=== PATIENT | female | born 1995 | race African-American/Black ===

== ENCOUNTER 2017-01-17 19:18 | Inpatient (IN) | payer OTHER ==
[~2017-01-17] VITALS: Ht 180.3 cm; Wt 135.2 kg
[~2017-01-17 19:18] MED LIST: GLUXL5 PO; INSU100S22 SC; METF10002 PO
[2017-01-17 19:22] VITALS: BP 148/90
--- NOTE | 2017-01-17 19:50 | NUR ---
PT TAKEN TO BED 6
--- NOTE | 2017-01-17 20:09 | NUR ---
Dr. Calle evaluating patient at bedside.
[2017-01-17 20:47] LABS: BASOPHILS # (AUTO) 0.1 K/uL (0.00-0.22); EOSINOPHILS # (AUTO) 0.3 K/uL (0-0.4); EOSINOPHILS % (AUTO) 2.7 % (0.0-4.0); HEMATOCRIT 41.5 % (36-48); HEMOGLOBIN 13.9 g/dL (12.0-16.0); LYMPHOCYTES # (AUTO) 2.5 K/uL (2.5-16.5); LYMPHOCYTES % (AUTO) 22.1 % (20.5-51.1); MEAN CORPUSCULAR HEMOGLOBIN 30 pg (27-31); MEAN CORPUSCULAR HGB CONC 34 g/dL (33-37); MEAN CORPUSCULAR VOLUME 88 fL (80-94); MONOCYTES # (AUTO) 0.5 K/uL (0.8-1.0); MONOCYTES % (AUTO) 4.6 % (1.7-9.3); NEUTROPHILS % (AUTO) 69.6 % (42.2-75.2); PLATELET COUNT (AUTO) 313 K/uL (140-450); RED CELL DISTRIBUTION WIDTH 12.2 % (11.6-13.7); WHITE BLOOD COUNT (AUTO) 11.4 K/uL (4.8-10.8)
[2017-01-17 20:52] LABS: ANION GAP 14.1 (8-16); CARBON DIOXIDE 27.3 mmol/L (21-32); CREATININE 0.7 mg/dL (0.6-1.3); POTASSIUM 3.4 mmol/L (3.5-5.1)
[2017-01-17 20:58] LABS: ALBUMIN 3.6 g/dL (3.4-5.0); TOTAL BILIRUBIN 0.2 mg/dL (0.0-1.0); TOTAL PROTEIN, SERUM 7.6 g/dL (6.4-8.2)
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
[2017-01-17 21:01] LABS: APPEARANCE,URINE CLEAR (CLEAR); BILIRUBIN,URINE NEGATIVE (NEGATIVE); BLOOD, URINE TRACE-I (NEGATIVE); COLOR,URINE YELLOW (YELLOW); LEUKOCYTE ESTERASE ,URINE NEGATIVE (NEGATIVE); NITRITE, URINE NEGATIVE (NEGATIVE); PROTEIN,URINE NEGATIVE (NEGATIVE); UGLUCOSE NEGATIVE (NEGATIVE); UROBILINOGEN,URINE 0.2 EU/dL (0.2 - 1)
--- NOTE | 2017-01-17 22:00 | NUR ---
Patient appears to be resting comfortably in bed. Vital Signs within normal limits. Respirations even and unlabored.
[2017-01-17 22:50] LABS: BACTERIA,URINE OCCASSIONAL /HPF (None Seen); RBC,URINE 0-5 (RARE) /HPF (0-5); WBC,URINE 0-5 (RARE) /HPF (0-5)
[2017-01-17 22:51] LABS: SQUAMOUS EPITHELIAL CELL,UR 4-10 (MOD) /LPF (0-3 (FEW))
[2017-01-17 23:00] VITALS: BP 133/81
--- NOTE | 2017-01-17 23:00 | NUR ---
Patient will be admitted to care of [facility]. Admited to ICU/TELE. Will go to room BED 3. Belongings list completed. Report to DUSTIN.
--- NOTE | 2017-01-17 23:10 | NUR ---
PATIENT TRANSFERRED FROM er BY GLENIS RN.THIS IS A TELEMETRY STATUS PATIENT. PATIENT ALERT. NOS SIGNS OF DISTRESS, PATIENT FOLLOWS COMMANDS. LUNGS SOUNDS CLEAR BILATERALLY. SI S2 NOTED. PATIENT HAS ABDOMINAL PAIN, PATIENT IS CONTINENT AND VOIDING. SKIN INTACT, PATIENT IS AMBULATORY. PATIENT HAS 7/10 PAIN, THE NURSE WAS NOTIFIED, PATIENT RECEIVED PAIN MEDICATION PER DR ORDERS. . IV IN THE PATIENTS LEFT WRIST. WILL CONTINUE TO MONITOR PATIENT, RESTING AT THIS TIME.
[2017-01-18] VITALS: BP 119/61
[2017-01-18] MEDS ORDERED: ONDANSETRON 4 MG/2 ML VIAL IVP PRN ×3 (00:20→22:50)
[2017-01-18] MEDS ORDERED: ACETAMINOPHEN 325 MG TAB PO PRN ×2 (00:20→10:20)
[2017-01-18] MEDS ORDERED: DOCUSATE SODIUM 100 MG GELCAP PO PRN (00:20)
[2017-01-18] MEDS ORDERED: POTASSIUM CHLORIDE 10 MEQ TABER PO ONE (00:25)
[2017-01-18] MEDS: MORPHINE SULFATE 2 MG/ML SYR IVP PRN ×2 (00:39→08:36)
[2017-01-18 00:47] LABS: PROTHROMBIN TIME 10.4 secs (10.8-13.4)
[2017-01-18 00:51] LABS: AMPHETAMINE, URINE NEG. ng/ml (NEG <=1000); BARBITURATE, URINE NEG. ng/ml (NEG <=200); BENZODIAZEPINE, URINE NEG. ng/mL (NEG <=200); CANNABINOID, URINE NEG. ng/mL (NEG <=50); COCAINE, URINE NEG. ng/mL (NEG <=300); OPIATE, URINE NEG. ng/mL (NEG <=2000); PHENCYCLIDINE SCREEN,URINE NEG. ng/mL (NEG <=25)
[2017-01-18 00:56] LABS: CHOL/HDL RATIO 6.5 (1-4.5); MAGNESIUM 1.8 mg/dL (1.8-2.4); PHOSPHORUS 4.4 mg/dL (2.5-4.9); THYROID STIMULATING HORMONE 2.14 uIU/mL (0.34-3.76)
--- NOTE | 2017-01-18 01:00 | NUR ---
01/18/17 [place] PATIENT HAD A CRITICAL LACTIC ACID AT 2.3. THE DR WAS CALLED BUT DID NOT ANSWER. THE DR CALLED BACK AND SAID THEY WOULD DO A REPEAT LACTIC ACID LATER IN THE MORNING.
[2017-01-18 04:00] VITALS: BP 124/82
[2017-01-18 05:23] LABS: BASOPHILS # (AUTO) 0.1 K/uL (0.00-0.22); BASOPHILS % (AUTO) 0.9 % (0.0-2.0); EOSINOPHILS # (AUTO) 0.3 K/uL (0-0.4); EOSINOPHILS % (AUTO) 2.6 % (0.0-4.0); HEMATOCRIT 39.9 % (36-48); HEMOGLOBIN 13.2 g/dL (12.0-16.0); LYMPHOCYTES # (AUTO) 2.9 K/uL (2.5-16.5); LYMPHOCYTES % (AUTO) 28.1 % (20.5-51.1); MEAN CORPUSCULAR HEMOGLOBIN 29 pg (27-31); MEAN CORPUSCULAR HGB CONC 33 g/dL (33-37); MEAN CORPUSCULAR VOLUME 89 fL (80-94); MONOCYTES # (AUTO) 0.6 K/uL (0.8-1.0); MONOCYTES % (AUTO) 5.9 % (1.7-9.3); NEUTROPHILS # (AUTO) 6.3 K/uL (1.8-7.7); NEUTROPHILS % (AUTO) 62.5 % (42.2-75.2); PLATELET COUNT (AUTO) 319 K/uL (140-450); RED CELL DISTRIBUTION WIDTH 12.5 % (11.6-13.7); WHITE BLOOD COUNT (AUTO) 10.2 K/uL (4.8-10.8)
[2017-01-18 06:48] LABS: ANION GAP 15.6 (8-16); CALCIUM 8.7 mg/dL (8.5-10.1); CREATININE 0.6 mg/dL (0.6-1.3); POTASSIUM 3.6 mmol/L (3.5-5.1)
--- NOTE | 2017-01-18 07:00 | NUR ---
RECEIVED REPORT FROM ICU NURSE AT BEDSIDE. PT IS ALERT AWAKE AND ORIENTED. HAS IV ON L WRIST 20 G SL. WILL CALL FOR SCDS. CALL LIGHT WITHIN REACH. WILL CONTINUE TO MONITOR.
[2017-01-18 08:00] VITALS: BP 117/76
--- NOTE | 2017-01-18 08:00 | NUR ---
VS WNL. PT C/O ABD PAIN, WILL MEDICATE.
[2017-01-18] MEDS ORDERED: PNEUMOCOCCAL VACCINE 23 MCG/0.5 ML VIAL IMVAC SCH (09:00)
--- NOTE | 2017-01-18 09:11 | NUR ---
PATIENT HAS BEEN SCREENED AND CATEGORIZED HIGH NUTRITION RISK. PATIENT WILL BE SEEN WITHIN 1-2 DAYS OF ADMISSION. 01/18/17-01/19/[address]
--- NOTE | 2017-01-18 10:00 | NUR ---
AT BEDSIDE EXAMINING PT. CALL LIGHT WITHIN REACH. WILL CONTINUE TO MONITOR.
[2017-01-18] MEDS ORDERED: MORPHINE SULFATE 2 MG/ML SYR IVP PRN (10:20)
[2017-01-18] MEDS ORDERED: HYDROcodone/APAP 5/325 MG 1 TAB TAB PO PRN (10:20)
[2017-01-18] MEDS ORDERED: ALBUTEROL SULFATE/IPRATROPIU 3 ML SOL IH PRN (10:25)
[2017-01-18] MEDS: NACL 0.9% 1,000 ML IV SCH ×3 (10:35→23:07)
[2017-01-18] MEDS ORDERED: DEXTROSE 50% 50 ML SYR IVP PRN (10:45)
[2017-01-18 12:00] VITALS: BP 132/83
--- NOTE | 2017-01-18 12:00 | NUR ---
X-RAY AND U/S TECHS AT BEDSIDE PERFORMED TESTS. PT TOLERATED WELL. CALL LIGHT WITHIN REACH. WILL CONTINUE TO MONITOR.
[2017-01-18] MEDS: BLOOD GLUCOSE MONITORING 1 DEV DEV FS SCH ×3 (12:22→20:46)
--- NOTE | 2017-01-18 13:00 | NUR ---
PT IS RESTING IN BED. NO COMPLAINTS AT THIS TIME. CALL LIGHT WITHIN REACH. WILL CONTINUE TO MONITOR.
--- NOTE | 2017-01-18 15:00 | NUR ---
PT IS WONDERING WHEN DR IS COMING. REASSURED PT DOCTOR WILL COME WITHIN 24 HOURS. CALL LIGHT WITHIN REACH. WILL CONTINUE TO MONITOR.
[2017-01-18 16:00] VITALS: BP 126/77
--- NOTE | 2017-01-18 17:30 | NUR ---
PT'S FATHER VISITED. PT IN STABLE CONDITION. CALL LIGHT WITHIN REACH. WILL CONTINUE TO MONITOR.
--- NOTE | 2017-01-18 19:15 | NUR ---
ENDORSED CARE OF PT TO CAR CHECKER NURSE AT BEDSIDE. PT IN STABLE CONDITION.
--- NOTE | 2017-01-18 19:30 | NUR ---
RECEIVED REPORT FROM AM NURSE. AOX4, RESTING IN BED, ABLE TO VERBALIZE NEEDS. ERP CONSULTANT IN PLACE. PT DENIES PAIN AT THIS TIME. NO CP, SOB OR S/S OF ACUTE DISTRESS. IV ACCESS ASYMPTOMATIC, PATENT AND INTACT. IVF INFUSING WELL. DISCUSSED AND REVIEWED PLAN OF CARE WITH PT. PT INSTRUCTED TO REMAIN NPO. PT VERBALIZES UNDERSTANDING. SAFETY MEASURES ENSURED. CALL LIGHT WITHIN REACH. WILL CONTINUE TO MONITOR.
[2017-01-18 20:00] VITALS: BP 126/78
--- NOTE | 2017-01-18 20:44 | NUR ---
PT REFUSED [facility] DESPITE EDUCATION. PT REQUESTING TO SHOWER WHEN HER SISTER GETS TO THE HOSPITAL. REQUESTED PERMISSION FROM DR AVENDANO FOR PT TO SHOWMD RODRIGO STATED IT WAS OK. BLOOD SUGAR 92, NO INSULIN COVERAGE NEEDED. ALL NEEDS MET. SAFETY MEASURES ENSURED. CALL LIGHT WITHIN REACH.
[2017-01-18] MEDS: DOCUSATE SODIUM 100 MG GELCAP PO SCH (20:46)
--- NOTE | 2017-01-18 21:00 | NUR ---
PT EVALUATED BY DR CRUZ. DISCUSSED PT CONDITION AND PLAN OF CARE. SURGERY TO BE DONE TONIGHT.
--- NOTE | 2017-01-18 21:15 | NUR ---
NOTIFIED BY CHARGE NURSE THAT SHE HAD OBTAINED PT'S SIGNED CONSENT FOR SURGERY.
--- NOTE | 2017-01-18 21:34 | NUR ---
NOTIFIED BY CHARGE NURSE THAT PT WAS TAKEN OUT OF THE UNIT FOR SURGERY.
[2017-01-18] MEDS ORDERED: BUPIVACAINE-MPF 0.5% 30 ML VIAL INJ ONE (22:05)
[2017-01-18] MEDS ORDERED: PROPOFOL 200 MG/20 ML VIAL IV ONE (22:06)
[2017-01-18] MEDS ORDERED: GLYCOPYRROLATE 0.2 MG/ML VIAL ONE (22:06)
[2017-01-18] MEDS ORDERED: KETOROLAC 30 MG/ML VIAL ONE (22:06)
[2017-01-18] MEDS ORDERED: PHENYLEPHRINE 10 MG/ML VIAL ONE (22:06)
[2017-01-18] MEDS ORDERED: LIDOCAINE 2% 100 MG/5 ML SYR IVP ONE (22:06)
[2017-01-18] MEDS ORDERED: ONDANSETRON 4 MG/2 ML VIAL ONE (22:06)
[2017-01-18] MEDS ORDERED: DESFLURANE 240 ML BTL INH ONE (22:06)
[2017-01-18] MEDS ORDERED: SUCCINYLCHOLINE CHLORIDE 200 MG/10 ML VIAL IVP ONE ×2 (22:06→22:24)
[2017-01-18] MEDS ORDERED: ROCURONIUM 50 MG/5 ML VIAL IV ONE (22:06)
[2017-01-18] MEDS ORDERED: DEXAMETHASONE 4 MG/ML VIAL ONE (22:06)
[2017-01-18] MEDS ORDERED: MORPHINE SULFATE 4 MG/ML SYR IM/IVP PRN (22:15)
[2017-01-18] MEDS ORDERED: ACETAMINOPHEN/CODEINE 300/30MG 1 TAB PO PRN (22:15)
[2017-01-18] MEDS ORDERED: IBUPROFEN 800 MG TAB PO PRN (22:15)
[2017-01-18] MEDS ORDERED: CLINDAMYCIN 900 MG/6 ML VIAL IV ONE (22:17)
[2017-01-18] MEDS ORDERED: fentaNYL 0.05 MG/ML VIAL ONE (22:19)
[2017-01-18] MEDS ORDERED: MIDAZOLAM 2 MG/2 ML VIAL ONE (22:19)
[2017-01-18] MEDS ORDERED: HYDROmorphone 1 MG/ML AMP IVP PRN (22:50)
[2017-01-18] MEDS ORDERED: BLOOD GLUCOSE MONITORING 1 DEV DEV FS SCH (23:00)
[2017-01-18] MEDS: HYDROmorphone PFS 2 MG/ML SYR ONE ×2 (23:47→23:57)
[2017-01-19] MEDS ORDERED: ALBUTEROL 0.083% 2.5 MG/3 ML NEBU INH ONE (00:24)
[2017-01-19] MEDS ORDERED: ALBUTEROL 0.083% 2.5 MG/3 ML NEBU INH SCH (00:30)
[2017-01-19 00:50] VITALS: BP 137/89
--- NOTE | 2017-01-19 00:50 | NUR ---
PT BACK FROM SURGERY. PT AOX4, ABLE TO VERBALIZE NEEDS, RESTING IN BED. VS NOTED. PT ALREADY MEDICATED FOR PAIN IN RECOVERY. NO S/S OF ACUTE DISTRESS. FERMENTATION SCIENTIST IN PLACE. DRESSING ON LOWER ABDOMEN CLEAN DRY AND INTACT, NO SIGNS OF BLEEDING. IV ACCESS ASYMPTOMATIC, PATENT AND INTACT. IVF WELL. SAFETY MEASURES ENSURED. CALL LIGHT WITHIN REACH. WILL CONTINUE TO MONITOR. Addendum: 01/19/17 at 0318 by Rafita Gonzalez RN BLOOD SUGAR 164, TAKEN BY RECOVERY NURSE. WILL HOLD INSULIN COVERAGE DUE TO PT NPO AT THIS TIME AND POST-OP.
[2017-01-19] MEDS: NACL 0.9% 1,000 ML IV SCH (01:25)
[2017-01-19 04:00] VITALS: BP 112/75
--- NOTE | 2017-01-19 04:00 | NUR ---
VS NOTED. PT C/O PAIN. SEE PAIN ASSESSMENT. WILL MEDICATE ORDERED. SAFETY MEASURES ENSURED. CALL LIGHT WITHIN REACH.
[2017-01-19] MEDS: MORPHINE SULFATE 4 MG/ML SYR IM/IVP PRN ×2 (04:45→11:34)
[2017-01-19] MEDS: BLOOD GLUCOSE MONITORING 1 DEV DEV FS SCH ×2 (07:03→12:01)
[2017-01-19] MEDS: INSULIN LISPRO SLIDING SCALE 100 UNITS/ML VIAL SUBQ PRN ×2 (07:04→12:03)
--- NOTE | 2017-01-19 07:30 | NUR ---
CONDITION STABLE. ENDORSED PLAN OF CARE TO AM NURSE.
--- NOTE | 2017-01-19 07:31 | NUR ---
PT AWAKE AND ALERT, NO SIGNS OF ACUTE DISTRESS. BOWEL SOUNDS ACTIVE IN ALL 4 QUADRANTS, NO ABDOMINAL DISTENTION. BOWEL AND BLADDER CONTINENCE. SKIN INTACT. AMBULATORY WITH BRP, IV PATENT AND ASYMPTOMATIC. BED IN LOW POSITION WITH BILATERAL HALF SIDE RAILS UP, CALL LIGHT WITHIN REACH. RE-ORIENTED PATIENT TO UNIT AND HOSPITAL, PT VERBALIZED UNDERSTANDING.
[2017-01-19 08:00] VITALS: BP 127/72
[2017-01-19] MEDS ORDERED: INSULIN DETEMIR 100 UNITS/ML 10 ML VIAL SUBQ SCH (09:00)
[2017-01-19] MEDS: metFORMIN 500 MG TAB PO SCH ×2 (09:00→11:55)
[2017-01-19] MEDS ORDERED: glipiZIDE 5 MG TAB PO SCH ×2 (09:00→09:25)
[2017-01-19] MEDS: DOCUSATE SODIUM 100 MG GELCAP PO SCH (09:25)
--- NOTE | 2017-01-19 10:57 | NUR ---
CM NOTE INITAL REVIEW FAXED TO [facility] [phone] DAVID [phone] DECEMBER [phone]
[2017-01-19 12:00] VITALS: BP 118/74
[2017-01-19] MEDS ORDERED: HYDR-4446 PO (12:47)
[2017-01-19] MEDS ORDERED: IBUP-2213 PO (12:47)
[2017-01-19] MEDS ORDERED: DOCU-67 PO (12:47)
--- NOTE | 2017-01-19 13:00 | NUR ---
RECEIVED DISCHARGE ORDERS FROM EDY BANERJEE, NOTED, WILL CARRY OUT.
--- NOTE | 2017-01-19 13:10 | NUR ---
01/19/17 RD INITIAL ASSESSMENT COMPLETED PLEASE REFER TO NUTRITION ASSESSMENT UNDER CARE ACTIVITY FOR ESTIMATED NUTRITIONAL NEEDS. 1. CONTINUE 60 G CONSISTENT CARBOHYDRATE DIET 2. RD TO FOLLOW-UP 2-3 DAYS; HIGH RISK IRENA HARDIN RD
--- NOTE | 2017-01-19 15:20 | NUR ---
PT AWAKE AND ALERT, NO SIGNS OF ACUTE DISTRESS. D/C'D IV AND TOOK OFF TELE MONITOR. CUT OFF WRIST BANDS. EDUCATED PT ON SIGNS AND SYMPTOMS OF INFECTION, WORSENING CONDITION AND DISCHARGE INSTRUCTIONS INCLUDING CARE OF SURGICAL INCISION. PT VERBALIZED UNDERSTANDING. PATIENT LEFT UNIT VIA WHEELCHAIR AND TAKEN HOME BY FAMILY VIA PRIVATE AUTO.
[2017-01-19] MEDS ORDERED: ATORVASTATIN 20 MG TAB PO SCH (21:00)
== END 2017-01-19 15:20 | disposition home or self-care (01) | DRG 513 ==
LOC: MED 19:22 → MIC 22:59 → MTU 01-18 07:00
PROVIDERS: ADMIT Family Medicine; ATTEND Family Medicine
PROC: 0UB00ZZ Excision of Right Ovary, Open Approach (ICD-10-PCS; principal; 2017-01-18 21:45)
DX: D27.0 Benign neoplasm of right ovary (principal); E43 Unspecified severe protein-calorie malnutrition; E11.9 Type 2 diabetes mellitus without complications; E78.5 Hyperlipidemia, unspecified; J45.909 Unspecified asthma, uncomplicated; E66.01 Morbid (severe) obesity due to excess calories; Z88.0 Allergy status to penicillin; Z88.2 Allergy status to sulfonamides; Z68.41 Body mass index [BMI] 40.0-44.9, adult; Z82.5 Family history of asthma and other chronic lower respiratory diseases; Z82.3 Family history of stroke; Z82.49 Family history of ischemic heart disease and other diseases of the circulatory system
CPT/HCPCS: 36415; 71010; 76830; 80048; 80053; 80305; 81001; 81025; 82150; 82948; 83036; 83605; 83690; 83735; 83880; 84100; 84443; 85025; 85610; 85730; 87081; 88307; 93005; 93925; 93970; 94640; 99285; J0330; J1100; J1170; J1815; J1885; J2001; J2250; J2270; J2370; J2405; J2704; J3010; J3490; J7030; J7613; J7620; Q0092

== ENCOUNTER 2017-05-31 16:14 | Emergency (ER) | payer MEDICAID, OTHER ==
[~2017-05-31] VITALS: Ht 180.3 cm; Wt 108.2 kg
[~2017-05-31 16:14] MED LIST changes: +ACET-8386 PO; +DOCU-299 PO; +IBUP-2213 PO
[2017-05-31 17:11] VITALS: BP 142/81
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
--- NOTE | 2017-05-31 19:19 | NUR ---
GAVE REPORT TO JANEE JOHN.
[2017-05-31 19:50] VITALS: BP 153/84
--- NOTE | 2017-05-31 19:50 | NUR ---
Patient discharged with v/s stable. Written and verbal after care instructions given and explained. Patient alert, oriented and verbalized understanding of instructions. Ambulatory with steady gait. All questions addressed prior to discharge. ID band removed. Patient advised to follow up with PMD. Rx of Medrol dose pack given. Patient educated on indication of medication including possible reaction and side effects. Opportunity to ask questions provided and answered.
== END 2017-05-31 19:50 | disposition home or self-care (01) ==
LOC: MED 16:14
DX: M54.40 Lumbago with sciatica, unspecified side (principal); J45.909 Unspecified asthma, uncomplicated; E11.9 Type 2 diabetes mellitus without complications; Z88.0 Allergy status to penicillin; Z88.2 Allergy status to sulfonamides
CPT/HCPCS: 81002; 81025; 99283

== ENCOUNTER 2018-07-14 11:43 | Emergency (ER) | payer OTHER ==
[~2018-07-14] VITALS: Ht 177.8 cm; Wt 111.1 kg
[~2018-07-14 11:43] MED LIST changes: -METF10002 PO; +[UNRECOGNIZED DRUG - CODE] PO
[2018-07-14 11:48] VITALS: BP 99/56
[2018-07-14 13:05] LABS: BASOPHILS # (AUTO) 0.1 K/uL (0.00-0.22); BASOPHILS % (AUTO) 0.5 % (0.0-2.0); EOSINOPHILS # (AUTO) 0.1 K/uL (0-0.4); EOSINOPHILS % (AUTO) 0.9 % (0.0-4.0); HEMATOCRIT 42.6 % (36-48); HEMOGLOBIN 13.9 g/dL (12.0-16.0); LYMPHOCYTES # (AUTO) 1.8 K/uL (2.5-16.5); MEAN CORPUSCULAR HEMOGLOBIN 29 pg (27-31); MEAN CORPUSCULAR HGB CONC 33 g/dL (33-37); MEAN CORPUSCULAR VOLUME 89.1 fL (80-94); MONOCYTES # (AUTO) 0.7 K/uL (0.8-1.0); MONOCYTES % (AUTO) 5.3 % (1.7-9.3); NEUTROPHILS # (AUTO) 10.1 K/uL (1.8-7.7); NEUTROPHILS % (AUTO) 79.3 % (42.2-75.2); PLATELET COUNT (AUTO) 291 K/uL (140-450); RED BLOOD CELL COUNT(AUTO) 4.78 MIL/uL (4.20-5.40); RED CELL DISTRIBUTION WIDTH 13.6 % (11.6-13.7); WHITE BLOOD COUNT (AUTO) 12.7 K/uL (4.8-10.8)
[2018-07-14] MEDS: NACL 0.9% 1,000 ML IV SCH (13:05)
[2018-07-14 13:12] LABS: BILIRUBIN,URINE NEGATIVE (NEGATIVE); BLOOD, URINE NEGATIVE (NEGATIVE); COLOR,URINE YELLOW (YELLOW); LEUKOCYTE ESTERASE ,URINE TRACE (NEGATIVE); NITRITE, URINE NEGATIVE (NEGATIVE); PH,URINE 6.5 (5.0-9.0); UGLUCOSE NEGATIVE (NEGATIVE)
[2018-07-14] MEDS: ONDANSETRON 4 MG/2 ML VIAL IVP ONE (13:12)
[2018-07-14 13:14] LABS: APPEARANCE,URINE SLIGHTLY CLOUDY (CLEAR)
[2018-07-14 13:18] LABS: ANION GAP 16.6 (8-16); CARBON DIOXIDE 21.8 mmol/L (21-32); CREATININE 0.6 mg/dL (0.6-1.3); POTASSIUM 3.4 mmol/L (3.5-5.1)
[2018-07-14 13:23] LABS: RBC,URINE 0-5 (RARE) /HPF (0-5)
[2018-07-14 13:24] LABS: WBC,URINE 6-15 (FEW) /HPF (0-5)
[2018-07-14 13:25] LABS: ALBUMIN 3.5 g/dL (3.4-5.0); TOTAL BILIRUBIN 0.2 mg/dL (0.0-1.0)
[2018-07-14 16:32] VITALS: BP 110/65
[2018-07-16 06:21] LABS: CHLAMYDIA TRACHOMATIS AMP DNA Negative (Negative)
== END 2018-07-14 16:30 | disposition home or self-care (01) ==
LOC: MED 11:43
DX: O23.591 Infection of other part of genital tract in pregnancy, first trimester (principal); O99.511 Diseases of the respiratory system complicating pregnancy, first trimester; Z3A.11 11 weeks gestation of pregnancy; E11.9 Type 2 diabetes mellitus without complications; Z88.0 Allergy status to penicillin; Z88.2 Allergy status to sulfonamides; Z79.899 Other long term (current) drug therapy; Z79.84 Long term (current) use of oral hypoglycemic drugs
CPT/HCPCS: 36415; 80053; 81001; 81025; 85025; 87070; 87086; 87205; 87210; 96361; 96374; 99283; J2405; 87491

== ENCOUNTER 2018-07-17 10:39 | Emergency (ER) | payer OTHER ==
[~2018-07-17] VITALS: Ht 177.8 cm; Wt 111.1 kg
[2018-07-17 10:45] VITALS: BP 107/72
[2018-07-17 11:11] VITALS: BP 125/72
== END 2018-07-17 11:12 | disposition home or self-care (01) ==
LOC: MED 10:39
DX: O21.9 Vomiting of pregnancy, unspecified (principal); O26.891 Other specified pregnancy related conditions, first trimester; R10.13 Epigastric pain; R07.89 Other chest pain; Z3A.12 12 weeks gestation of pregnancy; Z88.0 Allergy status to penicillin; Z88.2 Allergy status to sulfonamides; Z79.899 Other long term (current) drug therapy
CPT/HCPCS: 99283

== ENCOUNTER 2018-11-22 16:10 | Observation (INO) | payer OTHER ==
[~2018-11-22] VITALS: Ht 177.8 cm; Wt 111.1 kg
[~2018-11-22 16:10] MED LIST changes: +METF-1022 PO; -[UNRECOGNIZED DRUG - CODE] PO
[2018-11-22 17:50] LABS: APPEARANCE,URINE CLEAR (CLEAR); BILIRUBIN,URINE NEGATIVE (NEGATIVE); BLOOD, URINE 2+ (NEGATIVE); COLOR,URINE YELLOW (YELLOW); LEUKOCYTE ESTERASE ,URINE NEGATIVE (NEGATIVE); NITRITE, URINE NEGATIVE (NEGATIVE); UGLUCOSE 2+ (NEGATIVE)
[2018-11-22 17:58] LABS: BASOPHILS # (AUTO) 0.1 K/uL (0.00-0.22); BASOPHILS % (AUTO) 0.6 % (0.0-2.0); EOSINOPHILS # (AUTO) 0.1 K/uL (0-0.4); HEMATOCRIT 39.7 % (36-48); HEMOGLOBIN 13.2 g/dL (12.0-16.0); LYMPHOCYTES # (AUTO) 1.6 K/uL (2.5-16.5); LYMPHOCYTES % (AUTO) 15.4 % (20.5-51.1); MEAN CORPUSCULAR HEMOGLOBIN 30 pg (27-31); MEAN CORPUSCULAR HGB CONC 33 g/dL (33-37); MEAN CORPUSCULAR VOLUME 89.4 fL (80-94); MONOCYTES # (AUTO) 0.6 K/uL (0.8-1.0); MONOCYTES % (AUTO) 5.2 % (1.7-9.3); NEUTROPHILS # (AUTO) 8.2 K/uL (1.8-7.7); NEUTROPHILS % (AUTO) 77.8 % (42.2-75.2); PLATELET COUNT (AUTO) 289 K/uL (140-450); RED BLOOD CELL COUNT(AUTO) 4.44 MIL/uL (4.20-5.40); RED CELL DISTRIBUTION WIDTH 13.1 % (11.6-13.7); WHITE BLOOD COUNT (AUTO) 10.6 K/uL (4.8-10.8)
[2018-11-22 17:58] LABS: WBC,URINE 0-5 /HPF (0-5)
[2018-11-22] MEDS ORDERED: PREN-380 PO (19:11)
== END 2018-11-22 20:30 | disposition home or self-care (01) ==
LOC: MLD 16:10
PROVIDERS: ADMIT Obstetrics & Gynecology; ATTEND Obstetrics & Gynecology
DX: O26.893 Other specified pregnancy related conditions, third trimester (principal); R10.9 Unspecified abdominal pain; Z3A.30 30 weeks gestation of pregnancy
CPT/HCPCS: 36415; 81001; 82948; 85025; C1758; G0378

== ENCOUNTER 2021-07-16 09:14 | Emergency (ER) | payer OTHER ==
[~2021-07-16] VITALS: Ht 180.3 cm; Wt 115.7 kg
[~2021-07-16 09:14] MED LIST changes: +PREN-380 PO
[2021-07-16 09:19] VITALS: BP 142/87
--- NOTE | 2021-07-16 09:31 | NUR ---
PT AMBULATED TO BED 11.
[2021-07-16] MEDS ORDERED: ONDANSETRON 4 MG ODT PO ONE (09:55)
[2021-07-16] MEDS ORDERED: ONDANSETRON 4 MG ODT ONE (09:57)
--- NOTE | 2021-07-16 10:14 | NUR ---
pt c/o vomiting, cough x2 days. breathing unlabored. speaking in full sentences. tolerated SL zofran and po challenge, pending xrays. nad.
[2021-07-16 11:01] LABS: APPEARANCE,URINE CLEAR (CLEAR); BILIRUBIN,URINE NEGATIVE (NEGATIVE); BLOOD, URINE NEGATIVE (NEGATIVE); COLOR,URINE YELLOW (YELLOW); LEUKOCYTE ESTERASE ,URINE NEGATIVE (NEGATIVE); NITRITE, URINE NEGATIVE (NEGATIVE); UGLUCOSE NEGATIVE (NEGATIVE)
[2021-07-16] MEDS ORDERED: ONDA-188 SL (11:20)
[2021-07-16] MEDS ORDERED: FAMO-90 PO (11:28)
[2021-07-16 11:35] VITALS: BP 111/68
--- NOTE | 2021-07-16 11:35 | NUR ---
Patient discharged with v/s stable. Written and verbal after care instructions given and explained. Patient alert, oriented and verbalized understanding of instructions. Ambulatory with steady gait. All questions addressed prior to discharge. ID band removed. Patient advised to follow up with PMD. Rx of pepcid, zofran given. Patient educated on indication of medication including possible reaction and side effects. Opportunity to ask questions provided and answered.
== END 2021-07-16 11:35 | disposition home or self-care (01) ==
LOC: MED 09:14
DX: K29.70 Gastritis, unspecified, without bleeding (principal); R11.2 Nausea with vomiting, unspecified; J45.909 Unspecified asthma, uncomplicated; E11.9 Type 2 diabetes mellitus without complications; Z79.899 Other long term (current) drug therapy; Z79.1 Long term (current) use of non-steroidal anti-inflammatories (NSAID); Z79.4 Long term (current) use of insulin; Z79.891 Long term (current) use of opiate analgesic; Z88.0 Allergy status to penicillin; Z88.2 Allergy status to sulfonamides
CPT/HCPCS: 74022; 81003; 81025; 99284; Q0162

== ENCOUNTER 2022-06-28 17:07 | Emergency (ER) | payer OTHER ==
[~2022-06-28] VITALS: Ht 154.9 cm; Wt 111.1 kg
[~2022-06-28 17:07] MED LIST changes: +FAMO-90 PO; -METF-1022 PO; +METF-1253 PO; +ONDA-188 SL
[2022-06-28 17:24] VITALS: BP 139/74
[2022-06-28] MEDS ORDERED: ACETAMINOPHEN EXTRA STRENGTH 500 MG TAB PO ONE ×2 (17:30→18:35)
[2022-06-28] MEDS ORDERED: ACETAMINOPHEN EXTRA STRENGTH 500 MG TAB ONE (17:31)
[2022-06-28] MEDS ORDERED: ALBUTEROL SULFATE/IPRATROPIU 3 ML SOL IH ONE (18:35)
[2022-06-28] MEDS ORDERED: predniSONE 20 MG TAB PO ONE (18:35)
[2022-06-28] MEDS ORDERED: PRED20TA5 PO (19:08)
[2022-06-28] MEDS ORDERED: TAM75 PO (19:08)
[2022-06-28] MEDS ORDERED: IBUP-1842 PO (19:08)
[2022-06-28] MEDS ORDERED: ALBU0.0912 INH (19:08)
--- NOTE | 2022-06-28 19:10 | NUR ---
Patient discharged with v/s stable. Written and verbal after care instructions given and explained. Patient alert, oriented and verbalized understanding of instructions. Ambulatory with steady gait. All questions addressed prior to discharge. ID band removed. Patient advised to follow up with PMD. Rx of ALBUTEROL, IBUPROFEN, PREDNISONE, TAMIFLU given. Patient educated on indication of medication including possible reaction and side effects. Opportunity to ask questions provided and answered.
[2022-06-28 19:20] VITALS: BP 136/74
== END 2022-06-28 19:10 | disposition home or self-care (01) ==
LOC: MED 17:07
DX: J45.901 Unspecified asthma with (acute) exacerbation (principal); Z20.822 Contact with and (suspected) exposure to COVID-19; J10.1 Influenza due to other identified influenza virus with other respiratory manifestations; E11.9 Type 2 diabetes mellitus without complications; Z88.0 Allergy status to penicillin; Z88.2 Allergy status to sulfonamides; Z79.899 Other long term (current) drug therapy; Z79.4 Long term (current) use of insulin
CPT/HCPCS: 71045; 87426; 87804; 94640; 99285; Q0092

== ENCOUNTER 2023-03-04 09:28 | Emergency (ER) | payer OTHER ==
[~2023-03-04] VITALS: Ht 177.8 cm; Wt 116.8 kg
[~2023-03-04 09:28] MED LIST changes: -ACET-8386 PO; +ACET-8905 PO; +ALBU0.0912 INH; +IBUP-1842 PO; +PRED20TA5 PO; +TAM75 PO
[2023-03-04 09:30] VITALS: BP 120/100; PULSE 78; RESP 18; TEMP 97.5; O2SAT 99
[2023-03-04 09:59] VITALS: BP 120/100; PULSE 78; RESP 18; TEMP 97.5; O2SAT 99
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
[2023-03-04] MEDS ORDERED: ACETAMINOPHEN 325 MG TAB PO ONE (10:45)
[2023-03-04] MEDS ORDERED: KETOROLAC 15 MG/ML VIAL IM ONE (10:55)
[2023-03-04] MEDS ORDERED: IBUP-2213 PO (11:03)
[2023-03-04] MEDS ORDERED: METH-1681 PO (11:03)
[2023-03-04] MEDS ORDERED: LID5T TP (11:03)
--- NOTE | 2023-03-04 11:18 | NUR ---
Patient discharged with v/s stable. Written and verbal after care instructions given and explained. Patient alert, oriented and verbalized understanding of instructions. Ambulatory with steady gait. All questions addressed prior to discharge. ID band removed. Patient advised to follow up with PMD. Rx of LIDOCAINE PATCH, ROBAXIN given. Patient educated on indication of medication including possible reaction and side effects. Opportunity to ask questions provided and answered.
== END 2023-03-04 10:02 | disposition home or self-care (01) ==
LOC: MED 09:28
DX: S50.11XA Contusion of right forearm, initial encounter (principal); S39.91XA Unspecified injury of abdomen, initial encounter; M54.50 Low back pain, unspecified; J45.909 Unspecified asthma, uncomplicated; E11.9 Type 2 diabetes mellitus without complications; Z88.0 Allergy status to penicillin; Z88.2 Allergy status to sulfonamides; Z79.4 Long term (current) use of insulin; Z79.899 Other long term (current) drug therapy; Y04.0XXA Assault by unarmed brawl or fight, initial encounter; Y93.89 Activity, other specified; Y92.89 Other specified places as the place of occurrence of the external cause; Y99.8 Other external cause status
CPT/HCPCS: 73090; 99283; J1885

== ENCOUNTER 2023-05-15 20:06 | Emergency (ER) | payer OTHER ==
[~2023-05-15] VITALS: Ht 177.8 cm; Wt 113.4 kg
[~2023-05-15 20:06] MED LIST changes: +LID5T TP; +METH-1681 PO
[2023-05-15 20:40] VITALS: BP 150/96; PULSE 110; RESP 16; TEMP 97.1; O2SAT 100
[2023-05-15] MEDS ORDERED: NACL 0.9% 1,000 ML IV SCH (21:00)
[2023-05-15 21:23] LABS: APPEARANCE,URINE CLEAR (CLEAR); BILIRUBIN,URINE NEGATIVE (NEGATIVE); BLOOD, URINE NEGATIVE (NEGATIVE); COLOR,URINE YELLOW (YELLOW); LEUKOCYTE ESTERASE ,URINE NEGATIVE (NEGATIVE); NITRITE, URINE NEGATIVE (NEGATIVE); PH,URINE 5.5 (5.0-9.0); PROTEIN,URINE NEGATIVE (NEGATIVE); UGLUCOSE 3+ (NEGATIVE); UROBILINOGEN,URINE 0.2 EU/dL (0.2 - 1)
[2023-05-15 21:29] LABS: BASOPHILS # (AUTO) 0.1 K/uL (0.00-0.22); BASOPHILS % (AUTO) 0.8 % (0.0-2.0); EOSINOPHILS # (AUTO) 0.2 K/uL (0-0.4); EOSINOPHILS % (AUTO) 2.7 % (0.0-4.0); HEMATOCRIT 43.8 % (36-48); HEMOGLOBIN 14.3 g/dL (12.0-16.0); LYMPHOCYTES # (AUTO) 2.2 K/uL (2.5-16.5); LYMPHOCYTES % (AUTO) 24.5 % (20.5-51.1); MEAN CORPUSCULAR HEMOGLOBIN 29 pg (27-31); MEAN CORPUSCULAR HGB CONC 33 g/dL (33-37); MONOCYTES # (AUTO) 0.5 K/uL (0.8-1.0); MONOCYTES % (AUTO) 5.9 % (1.7-9.3); NEUTROPHILS # (AUTO) 5.9 K/uL (1.8-7.7); NEUTROPHILS % (AUTO) 66.1 % (42.2-75.2); PLATELET COUNT (AUTO) 285 K/uL (140-450); RED BLOOD CELL COUNT(AUTO) 4.87 MIL/uL (4.20-5.40); RED CELL DISTRIBUTION WIDTH 13.5 % (11.6-13.7)
[2023-05-15 21:30] LABS: BACTERIA,URINE 1+ /HPF (None Seen); RBC,URINE 0-5 /HPF (0-5); WBC,URINE 0-5 /HPF (0-5)
[2023-05-15 21:31] LABS: SQUAMOUS EPITHELIAL CELL,UR 4-10 (MOD) /LPF (0-3 (FEW))
[2023-05-15 22:06] LABS: ALANINE AMINOTRANSFERASE 35 U/L (12-78); ALBUMIN 3.8 g/dL (3.4-5.0); ALKALINE PHOSPHATASE 172 U/L (50-136); ANION GAP 23.1 (8-16); ASPARTATE AMINOTRANSFERASE 28 U/L (15-37); CALCIUM 8.7 mg/dL (8.5-10.1); CARBON DIOXIDE 17.3 mmol/L (21-32); CHLORIDE 95 mmol/L (98-107); CREATININE 1.1 mg/dL (0.6-1.3); GFR ARICAN-AMERICAN 77 mL/min (>90); GFR NON ARICAN-AMERICAN 63 mL/min (>90); LIPASE 65 U/L (16-77); POTASSIUM 3.4 mmol/L (3.5-5.1); SODIUM SERUM 132 mmol/L (136-145); TOTAL BILIRUBIN 0.2 mg/dL (0.0-1.0); TOTAL PROTEIN, SERUM 6.6 g/dL (6.4-8.2); UREA NITROGEN, BLOOD 8 mg/dL (7-18)
[2023-05-15 22:23] LABS: ACETONE, SERUM Negative (NEGATIVE)
[2023-05-15 22:25] LABS: GLUCOSE 548 mg/dL (74-106)
[2023-05-15] MEDS ORDERED: NACL 0.9% 1,000 ML IV ONE (22:40)
[2023-05-15] MEDS ORDERED: NITROFURANTOIN 100 MG CAP PO ONE (22:55)
[2023-05-16] MEDS ORDERED: POTASSIUM CHLORIDE 10 MEQ TABER PO ONE (00:05)
[2023-05-16] MEDS ORDERED: INSULIN REGULAR, HUMAN 100 UNIT/ML VIAL IVP ONE ×3 (00:10→00:55)
[2023-05-16 02:13] LABS: ANION GAP 14.2 (8-16); CALCIUM 8.2 mg/dL (8.5-10.1); CARBON DIOXIDE 23.7 mmol/L (21-32); CREATININE 0.8 mg/dL (0.6-1.3); POTASSIUM 3.9 mmol/L (3.5-5.1)
[2023-05-16] MEDS ORDERED: NITR100C7 PO (02:52)
[2023-05-16 02:58] VITALS: BP 145/74; PULSE 87; RESP 17; TEMP 97; O2SAT 99
== END 2023-05-16 02:59 | disposition home or self-care (01) ==
LOC: MED 20:06
DX: E11.65 Type 2 diabetes mellitus with hyperglycemia (principal); N39.0 Urinary tract infection, site not specified; R00.0 Tachycardia, unspecified; J45.909 Unspecified asthma, uncomplicated; Z79.899 Other long term (current) drug therapy; Z79.2 Long term (current) use of antibiotics; Z79.1 Long term (current) use of non-steroidal anti-inflammatories (NSAID); Z88.0 Allergy status to penicillin; Z88.2 Allergy status to sulfonamides
CPT/HCPCS: 36415; 71045; 80048; 80053; 81001; 81025; 82009; 82803; 83690; 85025; 96361; 96374; 99284; J1815; J7030

== ENCOUNTER 2023-11-20 08:31 | Emergency (ER) | payer OTHER ==
[~2023-11-20] VITALS: Ht 177.8 cm; Wt 111.6 kg
[~2023-11-20 08:31] MED LIST changes: +NITR100C7 PO
[2023-11-20 09:01] VITALS: BP 105/70; PULSE 85; RESP 18; TEMP 97.6; O2SAT 99
[2023-11-20 09:37] LABS: BASOPHILS # (AUTO) 0.1 K/uL (0.00-0.22); EOSINOPHILS # (AUTO) 0.1 K/uL (0-0.4); EOSINOPHILS % (AUTO) 1.2 % (0.0-4.0); HEMATOCRIT 43.9 % (36-48); LYMPHOCYTES # (AUTO) 1.9 K/uL (2.5-16.5); LYMPHOCYTES % (AUTO) 20.9 % (20.5-51.1); MEAN CORPUSCULAR HEMOGLOBIN 31 pg (27-31); MEAN CORPUSCULAR HGB CONC 34 g/dL (33-37); MEAN CORPUSCULAR VOLUME 89.9 fL (80-94); MONOCYTES # (AUTO) 0.5 K/uL (0.8-1.0); MONOCYTES % (AUTO) 5.2 % (1.7-9.3); NEUTROPHILS # (AUTO) 6.7 K/uL (1.8-7.7); NEUTROPHILS % (AUTO) 71.7 % (42.2-75.2); PLATELET COUNT (AUTO) 321 K/uL (140-450); RED BLOOD CELL COUNT(AUTO) 4.89 MIL/uL (4.20-5.40); RED CELL DISTRIBUTION WIDTH 13.4 % (11.6-13.7); WHITE BLOOD COUNT (AUTO) 9.3 K/uL (4.8-10.8)
[2023-11-20 10:02] LABS: ANION GAP 12.6 (8-16); CALCIUM 8.5 mg/dL (8.5-10.1); CARBON DIOXIDE 28.4 mmol/L (21-32); CREATININE 0.6 mg/dL (0.6-1.3)
[2023-11-20 10:06] LABS: BILIRUBIN,URINE NEGATIVE (NEGATIVE); BLOOD, URINE 3+ (NEGATIVE); LEUKOCYTE ESTERASE ,URINE 3+ (NEGATIVE); NITRITE, URINE POSITIVE (NEGATIVE); PROTEIN,URINE 3+ (NEGATIVE); UGLUCOSE TRACE (NEGATIVE); UROBILINOGEN,URINE >=8.0 EU/dL (0.2 - 1)
[2023-11-20 10:08] LABS: APPEARANCE,URINE BLOODY (CLEAR); COLOR,URINE BLOODY (YELLOW)
[2023-11-20 10:16] LABS: BACTERIA,URINE FEW /HPF (None Seen); RBC,URINE >100 /HPF (0-5); SQUAMOUS EPITHELIAL CELL,UR 4-10 (MOD) /LPF (0-3 (FEW))
[2023-11-20] MEDS: ACETAMINOPHEN EXTRA STRENGTH 500 MG TAB PO ONE (10:55)
[2023-11-20 12:24] VITALS: BP 120/74; PULSE 78; RESP 17; TEMP 98.3; O2SAT 98
[2023-11-20] MEDS ORDERED: CIPR500T4 PO (12:57)
== END 2023-11-20 12:20 | disposition home or self-care (01) ==
LOC: MED 08:31
DX: N83.202 Unspecified ovarian cyst, left side (principal); N93.8 Other specified abnormal uterine and vaginal bleeding; N39.0 Urinary tract infection, site not specified; J45.909 Unspecified asthma, uncomplicated; E11.9 Type 2 diabetes mellitus without complications; Z79.4 Long term (current) use of insulin; Z88.1 Allergy status to other antibiotic agents; Z88.2 Allergy status to sulfonamides; Z88.0 Allergy status to penicillin; Z79.899 Other long term (current) drug therapy
CPT/HCPCS: 36415; 76830; 80048; 81001; 81025; 85025; 87086; 99284; Q0092